=== PATIENT | female | born 1970 | race African-American/Black ===

== ENCOUNTER 2018-07-09 11:30 | Emergency (ER) | payer MEDICAID ==
[~2018-07-09] VITALS: Ht 165.1 cm; Wt 151.0 kg
[2018-07-09 16:07] VITALS: BP 158/103
== END 2018-07-09 17:42 | disposition home or self-care (01) ==
LOC: ER 11:30
DX: M25.561 Pain in right knee (principal); I10 Essential (primary) hypertension; F17.200 Nicotine dependence, unspecified, uncomplicated
CPT/HCPCS: 73562; 99283; Z7610

== ENCOUNTER 2022-10-05 17:32 | Emergency (ER) | payer MEDICAID, OTHER ==
[~2022-10-05] VITALS: Ht 165.1 cm; Wt 156.0 kg
[2022-10-05 17:47] VITALS: O2SAT 100
[2022-10-05 18:18] LABS: BASOPHILS % 0.4 % (0.0-2.0); EOSINOPHILS % 1.3 % (0.0-5.0); HEMATOCRIT. 37.8 % (36.0-48.0); HEMOGLOBIN. 12.5 g/dL (12.0-16.0); LYMPHOCYTES % 37.4 % (20.0-50.0); MEAN CORPUSCULAR HEMOGLOBIN 26.6 pg (28.0-32.0); MEAN CORPUSCULAR HGB CONC 33.2 g/dL (31.0-37.0); MEAN CORPUSCULAR VOLUME 80.1 fL (81.0-99.0); MEAN PLATELET VOLUME 7.8 fl (7.4-10.4); MONOCYTES % 8.3 % (2.0-8.0); NEUTROPHILS % 52.6 % (40.0-76.0); PLATELET 279 x1000/uL (130-400); RED BLOOD CELL COUNT 4.72 mill/uL (4.2-5.4); RED CELL DISTRIBUTION WIDTH 14.4 % (11.6-14.6); WHITE BLOOD COUNT 8.7 x1000/uL (4.5-11.0)
[2022-10-05 18:23] LABS: PROTHROMBIN TIME 10.5 sec (9.6-11.0)
[2022-10-05 18:32] LABS: ALBUMIN 3.1 g/dL (3.4-5.0); CALCIUM 9.2 mg/dL (8.5-10.1); CARBON DIOXIDE 27 mEq/L (21-32); CHLORIDE 106 mEq/L (98-107); INDEX HEMOLYSI 1 (1-3); INDEX ICTERIC 1 (1-4); INDEX LIPEMIC 1 (1-3); POTASSIUM 3.1 mEq/L (3.5-5.1); SODIUM 137 mEq/L (136-145)
[2022-10-05 18:33] LABS: HCG SCREEN NEGATIVE
[2022-10-05 18:38] LABS: ALANINE AMINOTRANSFERASE 25 IU/L (13-61); ASPARTATE AMINOTRANSFERASE 27 IU/L (15-37); BILIRUBIN TOTAL 0.3 mg/dL (0.1-1.0); CREATININE 0.8 mg/dL (0.6-1.3); GLUCOSE 96 mg/dL (70-105); PROTEIN TOTAL 7.5 g/dL (6.0-8.3); UREA NITROGEN BLOOD 9 mg/dL (7-21)
[2022-10-05] MEDS ORDERED: KETOROLAC 30MG/ML VIAL IV STA (21:37)
[2022-10-05] MEDS ORDERED: ONDANSETRON HCL 4MG/2ML INJ IV STA (21:37)
[2022-10-05] MEDS ORDERED: SODIUM CHLORIDE 0.9% 1,000 ML IV ONE (21:45)
[2022-10-06] MEDS ORDERED: TAMS-11 MT (01:29)
[2022-10-06] MEDS ORDERED: T3 PO (01:29)
[2022-10-06] MEDS ORDERED: IBUP-2029 MT (01:29)
[2022-10-06 03:04] LABS: CLARITY URINE CLEAR (CLEAR); COLOR URINE YELLOW (YELLOW); GLUCOSE URINE NEGATIVE (NEGATIVE); KETONES URINE TRACE (NEGATIVE); LEUKOCYTE ESTERASE URINE NEGATIVE (NEGATIVE); NITRITE URINE NEGATIVE (NEGATIVE); OCCULT BLOOD URINE 3+ (NEGATIVE); PH URINE 6.5 (4.5-8.0); PROTEIN URINE TRACE (NEGATIVE); SPECIFIC GRAVITY URINE 1.022 (1.005-1.030)
[2022-10-06 03:07] LABS: BACTERIA URINE NONE SEEN; YEAST URINE NONE SEEN
[2022-10-06 03:38] LABS: RBC URINE 50-100 /hpf (0-2); WBC URINE 0-2 /hpf (0-2)
[2022-10-06 03:39] LABS: SQUAMOUS EPITHELIAL CELL URINE FEW /lpf (RARE/1+)
[2022-10-06 04:11] VITALS: BP 150/85; PULSE 84; RESP 18; TEMP 98.8
== END 2022-10-06 04:13 | disposition home or self-care (01) ==
LOC: ER 17:32
DX: R10.31 Right lower quadrant pain (principal); R11.2 Nausea with vomiting, unspecified
CPT/HCPCS: 80053; 84703; 83690; 85025; 85610; 36415; 74176; 96361; 96374; 96375; 99285; 81003; J1885; J2405; J7030; Z7610